=== PATIENT | male | born 1995 | race African-American/Black ===

== ENCOUNTER 2020-12-01 01:49 | Emergency (ER) | payer SELFPAY ==
[~2020-12-01] VITALS: Ht 167.6 cm; Wt 64.0 kg
[2020-12-01] MEDS ORDERED: KETOROLAC 60MG/2ML VIAL IM STA (02:21)
[2020-12-01 02:36] VITALS: BP 114/67
[2020-12-01] MEDS ORDERED: AMOX-494 PO (02:44)
[2020-12-01] MEDS ORDERED: IBUP-2029 PO (02:44)
== END 2020-12-01 03:55 | disposition home or self-care (01) ==
LOC: ER 01:49
DX: K02.9 Dental caries, unspecified (principal)
CPT/HCPCS: 96372; 99283; J1885